=== PATIENT | male | born 1945 | race Two or more races ===

== ENCOUNTER → 2017-08-21 | Outpatient (CLI) | payer MEDICARE ==
[~2017-08-21] MED LIST: ALLERGY; AMLODIPINE BESY10 MG PO; FLOMAX0.4 MG PO; METFORMIN HCL1000 MG; PEPCID20 MG; SIMVASTATIN20 MG
--- NOTE | 2017-08-21 17:47 | Diagnostic Imaging Report ---
PROCEDURE:HIP RIGHT 2-3 VW (+/- PELVIS) COMPARISON:Patients [facility], DX, HIP RIGHT 2-3 VW (+/- PELVIS), 09/26/2016, 6:35. INDICATIONS:RIGHT HIP PAIN FINDINGS: BONES: Normal mineralization. No acute fracture or dislocation. Mild joint space narrowing and osteophytic lipping are stable. No remodeling of the femoral head. A bone island in the intertrochanteric region is stable. SOFT TISSUES:Negative. OTHER:Negative. CONCLUSION: No acute fracture or dislocation. Stable mild degenerative changes. Dictated by: Bg Manley M.D. on 08/21/2017 at 17:51 Electronically approved by: Bg Manley M.D. on 08/21/2017 at 17:51
== END ==
LOC: RAD 16:11
PROVIDERS: ATTEND Internal Medicine
DX: M16.11 Unilateral primary osteoarthritis, right hip (principal)

== ENCOUNTER → 2020-01-11 | Outpatient (CLI) | payer MEDICARE | LOC: MAMMO 11:14 | PROVIDERS: ATTEND Internal Medicine | DX: N62 Hypertrophy of breast (principal) | CPT/HCPCS: 77066 ==

== ENCOUNTER → 2020-07-27 | Outpatient (CLI) | payer MEDICARE | LOC: CT 16:14 | PROVIDERS: ATTEND Internal Medicine | DX: R41.3 Other amnesia (principal) | CPT/HCPCS: 70450 ==

== ENCOUNTER → 2021-02-27 | Outpatient (CLI) | payer MEDICARE | LOC: RAD 13:51 | PROVIDERS: ATTEND Internal Medicine | DX: I50.9 Heart failure, unspecified (principal) | CPT/HCPCS: 71046 ==

== ENCOUNTER → 2021-12-06 | Outpatient (CLI) | payer MEDICARE | LOC: DX 09:20 | PROVIDERS: ATTEND Internal Medicine Gastroenterology | DX: E11.9 Type 2 diabetes mellitus without complications (principal); D64.9 Anemia, unspecified; K21.9 Gastro-esophageal reflux disease without esophagitis; K44.9 Diaphragmatic hernia without obstruction or gangrene; R19.5 Other fecal abnormalities; Z68.22 Body mass index [BMI] 22.0-22.9, adult; Z86.010 Personal history of colon polyps | CPT/HCPCS: 74250 ==